=== PATIENT | male | born 1975 | race Caucasian/White ===

== ENCOUNTER 2016-10-17 12:52 | Emergency (ER) | payer MEDICAID, OTHER ==
--- NOTE | 2016-10-17 14:51 | EDPHY ---
H & P Time Seen by Provider: 10/17/16 14:50 HPI/ROS: Chief complaint. Fever, swollen lymph node HPI. A 41-year-old male presents emergency department with fever and swelling to the left neck. 2 days ago he had some respiratory congestion developed fever to 102 degrees. He had had similar symptoms about a month ago and called his physician at [facility] who called in a prescription for Bactrim. Patient notes a slightly purulent draining lesion on the left side of his neck. He also notes general fatigue and slight headache. No chest discomfort or shortness of breath or cough. No abdominal pain vomiting diarrhea or urinary symptoms. Similar symptoms 1 month ago in which he had URI symptoms and apparently the exact diagnosis was not made but he was treated with antibiotics and got better. Now he has recurrence of similar symptoms. ROS Constitutional. Fever and fatigue Eyes. no problems with vision ENT. no sore throat, no nasal drainage Cardiovascular. no chest pain Respiratory. no shortness of breath, no cough Abdominal. no abdominal pain, no nausea/vomiting, no diarrhea . no problems urinating MS. no calf pain/swelling, no neck/back pain, no joint pain Skin. Draining skin lesion left neck Lymph. no swollen glands Neuro. no headache, no dizziness, no difficulty walking or with speech Past Medical/Surgical History: Arthritis--on Enbrel Social History: , nonsmoker, no alcohol Smoking Status: Never smoked Physical Exam: General Appearance: Alert well-developed male mild distress vital signs are stable Eyes: Pupils equal and round no pallor or injection. ENT, pharynx slightly injected without exudate. Tympanic membranes are normal. No significant cervical adenopathy. Respiratory: There are no retractions, lungs are clear to auscultation. Cardiovascular: Regular rate and rhythm. Gastrointestinal: Abdomen is soft and nontender, no masses, bowel sounds normal. Neurological: Awake and alert, sensory and motor exams grossly normal. Skin: There is a 4 mm nodule on the left side of his neck appears to have been draining and is slightly crusty now. Musculoskeletal: Neck is supple nontender. Extremities symmetrical, full range of motion. Psychiatric: Patient is oriented X 3, there is no agitation. Constitutional: Initial Vital Signs Temperature (C) 36.9 C 10/17/16 13:06 Heart Rate 92 10/17/16 13:06 Respiratory Rate 14 10/17/16 13:06 Blood Pressure 112/81 H 10/17/16 13:06 O2 Sat (%) 96 10/17/16 13:06 O2 Delivery Mode Room Air Allergies/Adverse Reactions: No Known Allergies Allergy (Unverified 10/17/16 13:08) Home Medications: Medication Instructions Recorded ALPRAZolam [Xanax] 10/17/16 Bactrim DS 10/17/16 Medical Decision Making Procedures: IV normal saline Procedure incision and drainage. After sterile preparation 1% lidocaine with epinephrine is infiltrated around the nodule in left side of his neck. Using an 11 blade it is incised. Cultures obtained. Patient tolerates the procedure well Blood cultures x2 ED Course/Re-evaluation: I consulted and discussed the case with [employer] [facility]. They say that the patient' s insurance with [employer] is in August. The patient tells me they are working on it and it should be straightened out back with [employer] Wednesday or Wednesday. Patient and I discussed laboratory evaluation, treatment plan including criteria for return importance of follow-up and further evaluation. He expresses understanding and agreement Differential Diagnosis: This may be viral syndrome. The patient does have a small abscess to the left side of his neck. He has a normal workup at this point. Of concern he is taking Enbrel which can increase his risk for infection. We discussed that and I have asked him to discontinue the temporal for the next several days until he follows up with his regular physician. Patient is taking Bactrim and the wound infection in his neck may be MR of which Bactrim would be a good choice for coverage - Data Points Laboratory Results: Laboratory Results 10/17/16 14:45 10/17/16 14:45 10/17/16 10/17/16 14:45 14:45 WBC 6.35 10^3/uL 10^3/uL (3.80-9.50) RBC 4.56 10^6/uL 10^6/uL (4.40-6.38) Hgb 15.1 g/dL g/dL (13.7-17.5) Hct 42.2 % % (40.0-51.0) MCV 92.5 fL fL (81.5-99.8) MCH 33.1 pg pg (27.9-34.1) MCHC 35.8 g/dL g/dL (32.4-36.7) RDW 12.8 % % (11.5-15.2) Plt Count 129 10^3/uL L 10^3/uL (150-400) MPV 10.8 fL fL (8.7-11.7) Neut % (Auto) 78.1 % H % (39.3-74.2) Lymph % (Auto) 7.7 % L % (15.0-45.0) [place] % (Auto) 10.6 % % (4.5-13.0) Eos % (Auto) 3.1 % % (0.6-7.6) Baso % (Auto) 0.2 % L % (0.3-1.7) Nucleat RBC Rel Count 0.0 % % (0.0-0.2) Absolute Neuts (auto) 4.96 10^3/uL 10^3/uL (1.70-6.50) Absolute Lymphs (auto) 0.49 10^3/uL L 10^3/uL (1.00-3.00) Absolute Monos (auto) 0.67 10^3/uL 10^3/uL (0.30-0.80) Absolute Eos (auto) 0.20 10^3/uL 10^3/uL (0.03-0.40) Absolute Basos (auto) 0.01 10^3/uL L 10^3/uL (0.02-0.10) Absolute Nucleated RBC 0.00 10^3/uL 10^3/uL (0-0.01) Immature Gran % 0.3 % % (0.0-1.1) Immature Gran # 0.02 10^3/uL 10^3/uL (0.00-0.10) Sodium 139 mEq/L mEq/L (134-144) Potassium 4.1 mEq/L mEq/L (3.5-5.2) Chloride 102 mEq/L mEq/L (97-110) Carbon Dioxide 23 mEq/l mEq/l (22-31) Anion Gap 14 mEq/L mEq/L (8-16) BUN 14 mg/dL mg/dL (7-23) Creatinine 1.1 mg/dL mg/dL (0.7-1.3) Estimated GFR > 60 Glucose 86 mg/dL mg/dL (70-100) Calcium 9.2 mg/dL mg/dL (8.5-10.4) Medications Given: Discontinued Medications Acetaminophen (Tylenol) 650 mg PO EDNOW ONE Stop: 10/17/16 15:27 Last Admin: 10/17/16 15:27 Dose: 650 mg Sodium Chloride (Ns) 1,000 mls @ 0 mls/hr IV ONCE ONE; Wide Open PRN Reason: Protocol Stop: 10/17/16 15:04 Last Admin: 10/17/16 15:25 Dose: 1,000 mls Departure - Departure Disposition: Home, Routine, Self-Care Clinical Impression: Neck abscess Condition: Good Instructions: Abscess (ED) Additional Instructions: Continue taking the Bactrim twice daily. Tylenol 1000 mg every 4-6 hours, Motrin 600 mg every 6 hours for fever. Discontinue Enbrel until see your regular physician. Please call for follow-up appointment Wednesday or Wednesday. Return for worsening symptoms Referrals: VIN CARTER [Other] - As per Instructions
[2016-10-17] MEDS ORDERED: NS 1,000 ML IV ONE (15:03)
[2016-10-17 15:11] LABS: % IMMATURE GRANULYOCYTES 0.3 % (0.0-1.1); ABSOLUTE IMMATURE GRANULOCYTES 0.02 10^3/uL (0.00-0.10); ADD DIFF? NO; ADD MORPH? NO; ADD SCAN? NO; ATYPICAL LYMPHOCYTE FLAG 0 (0-99); FRAGMENT RBC FLAG 0 (0-99); HEMATOCRIT 42.2 % (40.0-51.0); HEMOGLOBIN 15.1 g/dL (13.7-17.5); LEFT SHIFT FLG 20 (0-99); LIPEMIA HEMOLYSIS FLAG 90 (0-99); MEAN CELL HEMOGLOBIN 33.1 pg (27.9-34.1); MEAN CELL HEMOGLOBIN CONCENTR. 35.8 g/dL (32.4-36.7); MEAN CELL VOLUME 92.5 fL (81.5-99.8); MEAN PLATELET VOLUME 10.8 fL (8.7-11.7); PLATELET CLUMPS FLAG 10 (0-99); PLATELET COUNT 129 10^3/uL (150-400); RED BLOOD CELL COUNT 4.56 10^6/uL (4.40-6.38); RED CELL DISTRIBUTION WIDTH 12.8 % (11.5-15.2)
[2016-10-17 15:16] LABS: ANION GAP 14 mEq/L (8-16); CALCIUM 9.2 mg/dL (8.5-10.4); CARBON DIOXIDE 23 mEq/l (22-31); CHLORIDE 102 mEq/L (97-110); CREATININE 1.1 mg/dL (0.7-1.3); GLOMERULAR FILTRATION RATE > 60; GLUCOSE 86 mg/dL (70-100); POTASSIUM 4.1 mEq/L (3.5-5.2); SODIUM 139 mEq/L (134-144)
[2016-10-17] MEDS ORDERED: ACETAMINOPHEN 325 MG TAB ONE (15:23)
[2016-10-17] MEDS ORDERED: ACETAMINOPHEN 325 MG TAB PO ONE (15:26)
[2016-10-17 16:47] VITALS: BP 113/73; PULSE 93; RESP 16; TEMP 99.5; O2SAT 95
== END 2016-10-17 16:47 | disposition home or self-care (01) ==
PROC: 0H94XZZ Drainage of Neck Skin, External Approach (ICD-10-PCS; principal; 2016-10-17)
DX: L02.11 Cutaneous abscess of neck (principal); E86.9 Volume depletion, unspecified